=== PATIENT | female | born 1990 | race Caucasian/White ===

== ENCOUNTER 2016-12-11 21:33 | Emergency (ER) | payer MEDICAID | END 2016-12-11 22:00 | disposition left against medical advice (07) | LOC: D.ER 21:33 | DX: Z02.9 Encounter for administrative examinations, unspecified (principal) ==

== ENCOUNTER 2017-07-03 19:06 | Emergency (ER) | payer MEDICAID | END 2017-07-03 20:49 | disposition home or self-care (01) | LOC: D.ER 19:06 | DX: R51 Headache (principal); F41.9 Anxiety disorder, unspecified; F17.200 Nicotine dependence, unspecified, uncomplicated ==

== ENCOUNTER 2017-09-09 01:44 | Emergency (ER) | payer MEDICAID | END 2017-09-09 03:33 | disposition home or self-care (01) | LOC: D.ER 01:44 | DX: F41.9 Anxiety disorder, unspecified (principal); S05.11XA Contusion of eyeball and orbital tissues, right eye, initial encounter; W20.8XXA Other cause of strike by thrown, projected or falling object, initial encounter; Y93.89 Activity, other specified; Y92.89 Other specified places as the place of occurrence of the external cause; F17.200 Nicotine dependence, unspecified, uncomplicated ==

== ENCOUNTER 2017-09-15 01:19 | Emergency (ER) | payer SELFPAY | END 2017-09-15 02:10 | disposition home or self-care (01) | LOC: D.ER 01:19 | DX: S00.83XA Contusion of other part of head, initial encounter (principal); X58.XXXA Exposure to other specified factors, initial encounter; Y93.89 Activity, other specified; Y92.029 Unspecified place in mobile home as the place of occurrence of the external cause ==

== ENCOUNTER 2017-09-22 12:55 | Emergency (ER) | payer SELFPAY | END 2017-09-22 13:55 | disposition home or self-care (01) | LOC: D.ER 12:55 | DX: S93.401A Sprain of unspecified ligament of right ankle, initial encounter (principal); W10.9XXA Fall (on) (from) unspecified stairs and steps, initial encounter; Y93.89 Activity, other specified; Y92.019 Unspecified place in single-family (private) house as the place of occurrence of the external cause; F17.200 Nicotine dependence, unspecified, uncomplicated ==

== ENCOUNTER 2017-10-06 15:07 | Emergency (ER) | payer MEDICAID | END 2017-10-06 17:17 | disposition home or self-care (01) | LOC: D.ER 15:07 | DX: S89.91XA Unspecified injury of right lower leg, initial encounter (principal); W19.XXXA Unspecified fall, initial encounter; Y93.89 Activity, other specified; Y92.89 Other specified places as the place of occurrence of the external cause; F17.200 Nicotine dependence, unspecified, uncomplicated ==

== ENCOUNTER 2017-10-07 12:04 | Emergency (ER) | payer MEDICAID | END 2017-10-07 13:35 | disposition home or self-care (01) | LOC: D.ER 12:04 | DX: S80.01XA Contusion of right knee, initial encounter (principal); W19.XXXA Unspecified fall, initial encounter; Y93.89 Activity, other specified; Y92.89 Other specified places as the place of occurrence of the external cause; F17.200 Nicotine dependence, unspecified, uncomplicated ==

== ENCOUNTER → 2017-11-27 | Emergency (ER) | payer MEDICAID | END | disposition home or self-care (01) | LOC: D.ER 21:47 | DX: Z02.9 Encounter for administrative examinations, unspecified (principal) ==

== ENCOUNTER 2017-12-04 22:53 | Emergency (ER) | payer MEDICAID | END 2017-12-05 00:15 | disposition home or self-care (01) | LOC: D.ER 22:53 | DX: F41.9 Anxiety disorder, unspecified (principal); F17.200 Nicotine dependence, unspecified, uncomplicated ==

== ENCOUNTER 2017-12-05 22:36 | Emergency (ER) | payer MEDICAID | END 2017-12-06 01:54 | disposition home or self-care (01) | LOC: D.ER 22:36 | DX: S51.812A Laceration without foreign body of left forearm, initial encounter (principal); W25.XXXA Contact with sharp glass, initial encounter; Y93.89 Activity, other specified; Y92.019 Unspecified place in single-family (private) house as the place of occurrence of the external cause ==

== ENCOUNTER 2017-12-13 09:36 | Emergency (ER) | payer MEDICAID | END 2017-12-13 12:07 | disposition home or self-care (01) | LOC: D.ER 09:36 | DX: S41.112A Laceration without foreign body of left upper arm, initial encounter (principal); X78.1XXA Intentional self-harm by knife, initial encounter; Y93.89 Activity, other specified; Y92.019 Unspecified place in single-family (private) house as the place of occurrence of the external cause; F43.22 Adjustment disorder with anxiety; Z86.59 Personal history of other mental and behavioral disorders ==

== ENCOUNTER 2018-10-14 18:01 | Emergency (ER) | payer MEDICAID ==
[~2018-10-14] VITALS: Ht 157.5 cm; Wt 70.5 kg
[2018-10-14 18:24] VITALS: Ht 157.5 cm; Wt 70.5 kg
[2018-10-14] MEDS ORDERED: NORCO 7.5/325 T1 TA1 PO (19:34)
[2018-10-14 19:42] VITALS: BP 119/79
== END 2018-10-14 19:42 | disposition home or self-care (01) ==
LOC: D.ER 18:01
DX: M25.562 Pain in left knee (principal); F17.200 Nicotine dependence, unspecified, uncomplicated

== ENCOUNTER 2018-11-07 21:22 | Emergency (ER) | payer MEDICAID ==
[~2018-11-07] VITALS: Ht 157.5 cm; Wt 71.7 kg
[~2018-11-07 21:22] MED LIST: NORCO 7.5/325 T1 TA1 PO
[2018-11-07 21:54] VITALS: Ht 157.5 cm; Wt 71.7 kg
[2018-11-07] MEDS ORDERED: ULTRAM50 MG PO (23:36)
[2018-11-07] MEDS ORDERED: CYCLOBENZAPRINE10 MG PO (23:36)
[2018-11-07 23:52] VITALS: BP 126/86
== END 2018-11-07 23:52 | disposition home or self-care (01) ==
LOC: D.ER 21:22
DX: S63.501A Unspecified sprain of right wrist, initial encounter (principal); Y04.2XXA Assault by strike against or bumped into by another person, initial encounter; Y93.89 Activity, other specified; Y92.89 Other specified places as the place of occurrence of the external cause; S80.02XA Contusion of left knee, initial encounter; F17.200 Nicotine dependence, unspecified, uncomplicated

== ENCOUNTER 2018-11-09 23:20 | Emergency (ER) | payer MEDICAID ==
[~2018-11-09] VITALS: Ht 157.5 cm; Wt 69.1 kg
[~2018-11-09 23:20] MED LIST changes: +CYCLOBENZAPRINE10 MG PO; +ULTRAM50 MG PO
[2018-11-09 23:23] VITALS: Ht 157.5 cm; Wt 69.1 kg
[2018-11-10] MEDS ORDERED: NORCO 7.5/325 T1 TA1 PO (00:08)
[2018-11-10 00:22] VITALS: BP 129/77
== END 2018-11-10 00:22 | disposition home or self-care (01) ==
LOC: D.ER 23:20
DX: S60.221A Contusion of right hand, initial encounter (principal); W18.30XA Fall on same level, unspecified, initial encounter; Y93.89 Activity, other specified; Y92.019 Unspecified place in single-family (private) house as the place of occurrence of the external cause; S63.91XA Sprain of unspecified part of right wrist and hand, initial encounter

== ENCOUNTER 2018-12-01 15:56 | Emergency (ER) | payer MEDICAID ==
[~2018-12-01] VITALS: Ht 157.5 cm; Wt 72.8 kg
[2018-12-01 16:14] VITALS: Ht 157.5 cm; Wt 72.8 kg
[2018-12-01] MEDS ORDERED: VIBRAMYCIN 100100 MG PO (16:55)
[2018-12-01] MEDS ORDERED: TYLENOL W/CODEI1 TAB PO (16:55)
[2018-12-01 17:10] VITALS: BP 139/84
== END 2018-12-01 17:11 | disposition home or self-care (01) ==
LOC: D.ER 15:56
DX: M26.601 Right temporomandibular joint disorder, unspecified (principal); J01.90 Acute sinusitis, unspecified

== ENCOUNTER 2019-03-06 15:01 | Emergency (ER) | payer OTHER ==
[2018-12-01 16:14] VITALS: BMI 29.3
[~2019-03-06 15:01] MED LIST changes: +TYLENOL W/CODEI1 TAB PO; +VIBRAMYCIN 100100 MG PO
[2019-03-06] MEDS ORDERED: KLONOPIN0.5 MG PO (16:28)
== END 2019-03-06 15:32 | disposition left against medical advice (07) ==
LOC: D.ER 15:01
DX: M25.562 Pain in left knee (principal)

== ENCOUNTER 2019-03-06 15:58 | Emergency (ER) | payer OTHER ==
[~2019-03-06] VITALS: Ht 157.5 cm; Wt 72.7 kg
[2019-03-06 16:23] VITALS: BP 107/70; Ht 157.5 cm; Wt 72.7 kg
[2019-03-06] MEDS ORDERED: KLONOPIN0.5 MG PO (16:28)
== END 2019-03-06 19:55 | disposition home or self-care (01) ==
LOC: D.ER 15:58
DX: M25.562 Pain in left knee (principal)

== ENCOUNTER 2019-06-11 20:35 | Emergency (ER) | payer OTHER ==
[~2019-06-11] VITALS: Ht 157.5 cm; Wt 72.7 kg
[~2019-06-11 20:35] MED LIST changes: +KLONOPIN0.5 MG PO
[2019-06-11 20:42] VITALS: BP 126/65; Ht 157.5 cm; Wt 72.7 kg
[2019-06-11] MEDS ORDERED: KEPPRA500 MG PO (20:44)
--- NOTE | 2019-06-11 21:23 | NUR ---
Dr Miller notified and reviewed pt behavior and assessment results. Pt is a low risk per Dr Miller. Dr Miller stated to give resources to pt at time of discharge. No further orders at this time. Resources give and reviewed with pt and she verbalizes understanding.
[2019-06-11] MEDS ORDERED: KLONOPIN0.5 MG PO (22:10)
[2019-06-11] MEDS ORDERED: TORADOL10 MG PO (22:10)
== END 2019-06-11 22:20 | disposition home or self-care (01) ==
LOC: D.ER 20:35
DX: F41.9 Anxiety disorder, unspecified (principal); F32.9 Major depressive disorder, single episode, unspecified; R51 Headache

== ENCOUNTER 2020-12-26 22:00 | Emergency (ER) | payer OTHER ==
[~2020-12-26] VITALS: Ht 157.5 cm; Wt 93.2 kg
[~2020-12-26 22:00] MED LIST changes: +KEPPRA500 MG PO; +TORADOL10 MG PO
[2020-12-26 22:16] VITALS: Ht 157.5 cm; Wt 93.2 kg
[2020-12-26] MEDS ORDERED: CEPHALEXIN500 M1 PO (23:00)
[2020-12-26 23:18] VITALS: BP 118/78
== END 2020-12-26 23:18 | disposition home or self-care (01) ==
LOC: D.ER 22:00
DX: K08.89 Other specified disorders of teeth and supporting structures (principal); Z72.0 Tobacco use

== ENCOUNTER 2021-01-03 22:29 | Emergency (ER) | payer OTHER ==
[~2021-01-03] VITALS: Ht 157.5 cm; Wt 90.3 kg
[~2021-01-03 22:29] MED LIST changes: +CEPHALEXIN500 M1 PO
[2021-01-03 22:35] VITALS: Ht 157.5 cm; Wt 90.3 kg
[2021-01-03] MEDS ORDERED: CHANTIX0.5 MG PO (22:38)
[2021-01-03 23:25] VITALS: BP 132/78
== END 2021-01-03 23:25 | disposition home or self-care (01) ==
LOC: D.ER 22:29
DX: S83.412A Sprain of medial collateral ligament of left knee, initial encounter (principal); X58.XXXA Exposure to other specified factors, initial encounter

== ENCOUNTER 2021-03-15 22:26 | Emergency (ER) | payer OTHER ==
[~2021-03-15] VITALS: Ht 157.5 cm; Wt 89.8 kg
[~2021-03-15 22:26] MED LIST changes: +CHANTIX0.5 MG PO
[2021-03-15 22:39] VITALS: BP 152/87; Ht 157.5 cm; Wt 89.8 kg
[2021-03-15] MEDS ORDERED: NEURONTIN 300300 MG (22:41)
[2021-03-15] MEDS ORDERED: SUMATRIPTAN SUC25 MG (22:41)
[2021-03-16] MEDS ORDERED: PROMETHAZINE W473 ML PO (00:33)
[2021-03-16] MEDS ORDERED: STADOL NASAL S2.5 ML NASAL (00:33)
== END 2021-03-16 01:37 | disposition home or self-care (01) ==
LOC: D.ER 22:26
DX: G43.909 Migraine, unspecified, not intractable, without status migrainosus (principal); R05 Cough; J30.2 Other seasonal allergic rhinitis